=== PATIENT | male | born 1955 | race Caucasian/White ===

== ENCOUNTER 2020-12-21 17:06 | Emergency (ER) | payer BC ==
[~2020-12-21] VITALS: Ht 182.8 cm; Wt 77.1 kg
== END 2020-12-21 19:42 | disposition home or self-care (01) ==
LOC: ED 17:06
DX: S82.852A Displaced trimalleolar fracture of left lower leg, initial encounter for closed fracture (principal); S72.002A Fracture of unspecified part of neck of left femur, initial encounter for closed fracture; S41.111A Laceration without foreign body of right upper arm, initial encounter; W11.XXXA Fall on and from ladder, initial encounter; Y93.89 Activity, other specified; Y92.89 Other specified places as the place of occurrence of the external cause; Y99.8 Other external cause status

== ENCOUNTER 2020-12-22 08:45 | Emergency (ER) | payer BC ==
[~2020-12-22] VITALS: Ht 182.8 cm; Wt 77.1 kg
== END 2020-12-22 10:41 | disposition home or self-care (01) ==
LOC: ED 08:45
DX: M79.672 Pain in left foot (principal); Z46.89 Encounter for fitting and adjustment of other specified devices